=== PATIENT | male | born 2000 | race American Indian/Alaskan Native ===

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

== ENCOUNTER 2020-09-25 13:05 | Emergency (ER) | payer MEDICAID ==
--- NOTE | 2020-09-25 20:44 | Emergency Department Report ---
HPI - General Chief Complaint: Rectal Pain Time Seen by Provider: 09/25/20 19:56 - HPI HPI: This is a 20-year-old male who presents to the emergency department with a complaint of rectal bleeding that is been going on over the past few months, and an episode last night in which he had both blood and feces come up through his mouth and nose. The patient says that the rectal bleeding has been going on since the patient got out of long term a few months ago, but it is does not only occur with bowel movements. The patient says that he gets some bubbling ab dominal discomfort and then has some blood come out, oftentimes into his underwear. Last night the patient was sitting on the toilet trying to have a bowel movement and says that when he was bearing down or squeezing, suddenly blood in feces that was bright red came up through his nose and mouth. The blood that he sees coming from his rectum also is bright red. Patient denies any past medical history. He denies engaging in any anal sex or placing anything in his rectum. He has not taken anything for his symptoms prior to presentation today. ED Past Medical Hx - Past Medical History Previous Medical History?: No - Surgical History Past Surgical History?: No - Social History Smoking Status: Never Smoker Substance Use Type: None - Medications Home Medications: Home Medications Medication Instructions Recorded Confirmed Last Taken Type Acetaminophen/Codeine [Tylenol #3] 1 tab PO Q6H PRN #30 tab 01/19/15 Unknown Rx Ibuprofen [Motrin 600 MG tab] 600 mg PO Q8H PRN #30 tablet 01/19/15 Unknown Rx Ciprofloxacin HCl 500 mg PO BID #14 tablet 09/25/20 Unknown Rx Omeprazole 20 mg PO QDAY #15 capsule. 09/25/20 Unknown Rx ED Review of Systems ROS: Stated complaint: CHECK UP Other details as noted in HPI Comment: All other systems reviewed and negative Constitutional: denies: chills, fever Eyes: denies: eye pain, vision change ENT: denies: ear pain, throat pain Respiratory: denies: cough, shortness of breath Cardiovascular: denies: chest pain, palpitations Gastrointestinal: nausea, vomiting, hematemesis, hematochezia Genitourinary: denies: dysuria, discharge Musculoskeletal: denies: back pain, arthralgia Skin: denies: rash, lesions Neurological: denies: headache, weakness Physical Exam - Physical Exam Vital Signs: Vital Signs 09/25/20 13:32 Temperature 98.7 F Pulse Rate 79 Respiratory 16 Rate Blood Pressure 132/93 O2 Sat by Pulse 99 Oximetry Physical Exam: GENERAL: The patient is well-developed well-nourished. HENT: Normocephalic. Atraumatic. Patient has moist mucous membranes. EYES: Extraocular motions are intact. NECK: Supple. Trachea is midline. CHEST/LUNGS: Clear to auscultation. There is no respiratory distress noted. HEART/CARDIOVASCULAR: Regular. There is no tachycardia. There is no murmur. ABDOMEN: Abdomen is soft. Mild generalized abdominal tenderness to palpation. No guarding. Patient has normal bowel sounds. There is no abdominal distention. SKIN: Skin is warm and dry. NEURO: The patient is awake, alert, and oriented. The patient is cooperative. The patient has no focal neurologic deficits. Normal speech. MUSCULOSKELETAL: There is no tenderness or deformity. There is no limitation range of motion. RECTAL: Patient has a nonthrombosed external hemorrhoid at the 6 o'clock position. No gross hematochezia. ED Course Vital Signs 09/25/20 13:32 Temperature 98.7 F Pulse Rate 79 Respiratory 16 Rate Blood Pressure 132/93 O2 Sat by Pulse 99 Oximetry ED Medical Decision Making - Lab Data Result diagrams: 09/25/20 20:37 09/25/20 20:37 Lab Results 09/25/20 09/25/20 09/25/20 Range/Units 20:37 20:37 20:37 WBC 6.7 (4.5-11.0) K/mm3 RBC 5.46 H (3.65-5.03) M/mm3 Hgb 14.6 (11.8-15.2) gm/dl Hct 44.2 (35.5-45.6) % MCV 81 L (84-94) fl MCH 27 L (28-32) pg MCHC 33 (32-34) % RDW 14.9 (13.2-15.2) % Plt Count 203 (140-440) K/mm3 Lymph % (Auto) 21.5 (13.4-35.0) % [place] % (Auto) 10.7 H (0.0-7.3) % Eos % (Auto) 1.2 (0.0-4.3) % Baso % (Auto) 0.4 (0.0-1.8) % Lymph # (Auto) 1.4 (1.2-5.4) K/mm3 [place] # (Auto) 0.7 (0.0-0.8) K/mm3 Eos # (Auto) 0.1 (0.0-0.4) K/mm3 Baso # (Auto) 0.0 (0.0-0.1) K/mm3 Seg Neutrophils % 66.2 (40.0-70.0) % Seg Neutrophils # 4.4 (1.8-7.7) K/mm3 PT 13.9 (12.2-14.9) Sec. INR 1.02 (0.87-1.13) APTT 29.2 (24.2-36.6) Sec. Sodium 138 (137-145) mmol/L Potassium 3.3 L (3.6-5.0) mmol/L Chloride 99.0 (98-107) mmol/L Carbon Dioxide 36 H (22-30) mmol/L Anion Gap 6 mmol/L BUN 8 L (9-20) mg/dL Creatinine 0.7 L (0.8-1.3) mg/dL Estimated GFR > 60 ml/min BUN/Creatinine Ratio 11 % Glucose 94 (75-100) mg/dL Calcium 9.8 (8.4-10.2) mg/dL Total Bilirubin 0.30 (0.1-1.2) mg/dL AST 15 (5-40) units/L ALT 7 (7-56) units/L Alkaline Phosphatase 73 (35-129) units/L Total Protein 7.5 (6.3-8.2) g/dL Albumin 4.1 (3.9-5) g/dL Albumin/Globulin Ratio 1.2 % - Radiology Data Radiology results: report reviewed, image reviewed interpreted by me: Chest x-ray does not show any acute process. There are no pleural effusions, obvious pneumonia and there is no pneumothorax. No widened mediastinum. Abdominal x-ray shows nonspecific nonobstructive bowel gas. No free air. CT ABDOMEN AND PELVIS WITH CONTRAST INDICATION / CLINICAL INFORMATION: Pt complains of abd pain and rectal bleeding. TECHNIQUE: Axial CT images were obtained through the abdomen and pelvis after 100 cc of Omnipaque [address] scans at this location are performed using CT dose reduction for ALARA by means of automated exposure control. COMPARISON: Radiograph from earlier in the day FINDINGS: LOWER CHEST: No significant abnormality. AORTA / ARTERIES: No significant abnormality. IVC / VEINS: No significant abnormality. LYMPH NODES: No significant adenopathy. COLON: The rectal wall is markedly thickened with perirectal inflammation. APPENDIX: No significant abnormality. STOMACH / SMALL BOWEL: Numerous fluid filled loops of bowel throughout the abdomen. PERITONEUM: No free fluid. No free air. No fluid collection. LIVER: No significant abnormality. GALLBLADDER: No significant abnormality. BILE DUCTS: No significant abnormality. PANCREAS: No significant abnormality. SPLEEN: No significant abnormality. ADRENALS: No significant abnormality. RIGHT KIDNEY / URETER: No significant abnormality. LEFT KIDNEY / URETER: No significant abnormality. URINARY BLADDER: No significant abnormality. REPRODUCTIVE ORGANS: No significant abnormality. SKELETAL SYSTEM: No significant abnormality. ADDITIONAL FINDINGS: None. IMPRESSION: 1. There is a markedly thickened rectal wall with adjacent perirectal inflammation. Correlate for infectious versus inflammatory proctitis. 2. Numerous loops of fluid-filled bowel throughout the abdomen which can be seen with infectious versus inflammatory enteritis. - Medical Decision Making This patient presents with the complaint of having some subacute or chronic rectal bleeding, and then having an acute episode of hematemesis along with vomiting fecal material. He complains of some mild abdominal and rectal pains. On examination he has some mild general abdominal tenderness to palpation, but no guarding. The abdomen is soft, nondistended and nontoxic in appearance. Patient's labs are mostly unremarkable including CBC, metabolic panel, except for some mild hypokalemia. The patient was given potassium chloride. He had a CT scan of the abdomen and pelvis that shows proctitis and enteritis. Patient was given a dose of Decadron and started on antibiotics. Vital signs have been reassuring throughout his ED course. The patient was reevaluated multiple times over multiple hours and has remained stable throughout his ED course. There has been no further episode of any vomiting, especially not of any fecal material. The patient will be discharged home to follow-up with primary care and gastroenterology. He will return to the emergency department with any worsening of his symptoms or with any acute distress. Critical Care Time: No Critical care attestation.: If time is entered above; I have spent that time in minutes in the direct care of this critically ill patient, excluding procedure time. ED Disposition Clinical Impression: Rectal bleeding, Proctitis, Enteritis, Hypokalemia Disposition: - TO HOME OR SELFCARE Is pt being admited?: No Condition: Stable Instructions: Rectal Bleeding, Potassium Content of Foods, Proctitis Additional Instructions: Please follow-up with a primary care physician in the next few days. I am giving you a referral for [place] [facility] to follow-up regarding your abdominal pains, rectal bleeding, and CT findings of proctitis and enteritis. Return to the emergency department with any worsening of your symptoms, new or concerning symptoms not addressed during this current emergency department visit, or with any acute distress. Prescriptions: Ciprofloxacin HCl 500 mg PO BID #14 tablet Omeprazole 20 mg PO QDAY #15 capsule. Referrals: PRIMARY CARE [Primary Care Provider] - 2-3 Days [facility] [Provider Group] - 2-3 Days Time of Disposition: 23:02
[2020-09-25 20:46] LABS: Basophils % (Auto) 0.4 % (0.0-1.8); Eosinophils # (Auto) 0.1 K/mm3 (0.0-0.4); Eosinophils % (Auto) 1.2 % (0.0-4.3); Hematocrit 44.2 % (35.5-45.6); Hemoglobin 14.6 gm/dl (11.8-15.2); Lymphocytes # (Auto) 1.4 K/mm3 (1.2-5.4); Lymphocytes % (Auto) 21.5 % (13.4-35.0); Mean Corpuscular HGB Conc 33 % (32-34); Mean Corpuscular Volume 81 fl (84-94); Monocytes # (Auto) 0.7 K/mm3 (0.0-0.8); Monocytes % (Auto) 10.7 % (0.0-7.3); Platelet Count 203 K/mm3 (140-440); Red Blood Count 5.46 M/mm3 (3.65-5.03); Red Cell Distribution Width 14.9 % (13.2-15.2)
[2020-09-25 20:57] LABS: INR 1.02 (0.87-1.13)
[2020-09-25 20:58] LABS: Partial Thromboplastin Time 29.2 Sec. (24.2-36.6)
[2020-09-25 21:06] LABS: Alanine Aminotransferase 7 units/L (7-56); Albumin 4.1 g/dL (3.9-5); Blood Urea Nitrogen 8 mg/dL (9-20); Calcium 9.8 mg/dL (8.4-10.2); Hemolysis Index 4
[2020-09-25 21:07] LABS: BUN/Creatinine Ratio 11
[2020-09-25] MEDS ORDERED: POTASSIUM CHLORIDE ER 10 MEQ TAB PO ONE (21:10)
--- NOTE | 2020-09-25 21:17 | XRay Report ---
ABDOMEN 3 VIEW(S) INDICATION / CLINICAL INFORMATION: Abd pain. COMPARISON: None available. FINDINGS: TUBES / LINES: None. BOWEL GAS PATTERN: Mild prominence of bowel gas within the left lower quadrant with air-fluid levels. FREE AIR / EXTRALUMINAL GAS: None seen. ADDITIONAL FINDINGS: No significant additional findings. CHEST: Visualized chest shows no significant abnormality. IMPRESSION: 1. No acute cardiopulmonary abnormality. Mild prominence of bowel gas within the left lower quadrant which can be seen with enteritis. Signer Name: Kaushik Almazan DO Signed: 09/25/2020 9:13 PM Workstation Name: [id number]
--- NOTE | 2020-09-25 22:21 | Cat Scan Report ---
CT ABDOMEN AND PELVIS WITH CONTRAST INDICATION / CLINICAL INFORMATION: Pt complains of abd pain and rectal bleeding. TECHNIQUE: Axial CT images were obtained through the abdomen and pelvis after 100 cc of Omnipaque [address] scans at this location are performed using CT dose reduction for ALARA by means of automated exposure control. COMPARISON: Radiograph from earlier in the day FINDINGS: LOWER CHEST: No significant abnormality. AORTA / ARTERIES: No significant abnormality. IVC / VEINS: No significant abnormality. LYMPH NODES: No significant adenopathy. COLON: The rectal wall is markedly thickened with perirectal inflammation. APPENDIX: No significant abnormality. STOMACH / SMALL BOWEL: Numerous fluid filled loops of bowel throughout the abdomen. PERITONEUM: No free fluid. No free air. No fluid collection. LIVER: No significant abnormality. GALLBLADDER: No significant abnormality. BILE DUCTS: No significant abnormality. PANCREAS: No significant abnormality. SPLEEN: No significant abnormality. ADRENALS: No significant abnormality. RIGHT KIDNEY / URETER: No significant abnormality. LEFT KIDNEY / URETER: No significant abnormality. URINARY BLADDER: No significant abnormality. REPRODUCTIVE ORGANS: No significant abnormality. SKELETAL SYSTEM: No significant abnormality. ADDITIONAL FINDINGS: None. IMPRESSION: 1. There is a markedly thickened rectal wall with adjacent perirectal inflammation. Correlate for inf ectious versus inflammatory proctitis. 2. Numerous loops of fluid-filled bowel throughout the abdomen which can be seen with infectious vers us inflammatory enteritis. Signer Name: Kaushik Almazan DO Signed: 09/25/2020 10:17 PM Workstation Name: [id number]
[2020-09-25] MEDS ORDERED: dexAMETHasone 20 MG/5 ML VIAL IV ONE (22:36)
[2020-09-25] MEDS ORDERED: levoFLOXacin 500 MG TAB PO ONE (22:36)
[2020-09-26 02:49] VITALS: BP 131/72
== END 2020-09-26 | disposition home or self-care (01) ==
LOC: ED 13:05
DX: K62.5 Hemorrhage of anus and rectum (principal); K52.9 Noninfective gastroenteritis and colitis, unspecified; E87.6 Hypokalemia; K62.89 Other specified diseases of anus and rectum; Z79.1 Long term (current) use of non-steroidal anti-inflammatories (NSAID); Z79.899 Other long term (current) drug therapy
CPT/HCPCS: 36415; 74022; 74177; 80053; 85025; 85610; 85730; 96374; 99285; J1100; Q9967